=== PATIENT | male | born 1980 ===

== ENCOUNTER 2022-01-28 20:15 | Emergency (ER) | payer BC ==
[2022-01-28] MEDS ORDERED: Boostrix 0.5 ML (Tdap) VIAL (>/=7 yrs of age) ONE (20:49)
== END 2022-01-28 21:14 | disposition home or self-care (01) ==
LOC: ERS 20:15
DX: S81.811A Laceration without foreign body, right lower leg, initial encounter (principal); W45.8XXA Other foreign body or object entering through skin, initial encounter
CPT/HCPCS: 90471; 90715